=== PATIENT | female | born 1985 | race Caucasian/White ===

== ENCOUNTER → 2018-03-23 | Day surgery (SDC) | payer OTHER ==
[2018-03-06 12:01] VITALS: Ht 170.2 cm; Wt 59.1 kg
[~2018-03-23] VITALS: Ht 170.2 cm; Wt 59.1 kg
[~2018-03-23] MED LIST: AMPH25CA PO; ATEN-173 PO; ATROPINE SULFATE 0.1 MG/ML 5ML SYR IV PRN; BUPIVACAINE 0.25% 30 ML VIAL ONE; BUSP5TAB59 PO; CEFAZOLIN 2000MG IV PUSH 15 ML IV SCH; DEXAMETHASONE SOD INJ 4 MG/ML VIAL ONE; EpHEDrine SULFATE INJ 50 MG/ML AMP IV PRN; EpINEphrine HCL INJ 1 MG/ML 1ML SYRINGE ONE; FENTANYL CITRATE INJ 50 MCG/1 ML 2 ML VIAL IV PRN; FENTANYL CITRATE INJ 50 MCG/1 ML 2 ML VIAL ONE; KETO10TA PO; KETOROLAC TROMETHAMINE 30 MG/ML VIAL IV. PRN; LACTATED RINGER'S 1000ML 1,000 ML IV SCH; LIDOCAINE HCL 2% 2 ML VIAL (20MG/ML) ONE; MIDAZOLAM HCL 1 MG/ML 2ML VIAL ONE; NAPR-1169 PO; ONDANSETRON INJ 2 MG/ML 2 ML VIAL IV PRN; ONDANSETRON INJ 2 MG/ML 2 ML VIAL ONE; OXYC-57 PO; OXYCODONE/ACETAMINOPHEN 5-325 TAB PO PRN; PRAZ2CAP3 PO; PROPOFOL IV EMULSION 10 MG/ML 20 ML VIAL IV ONE; RANI150T85 PO; ROPIVACAINE 0.5% 5 MG/ML 30 ML VIAL ONE; SCOPOLAMINE 1.5 MG TDSY TD ONE; SERT-234 PO; SODIUM CHLORIDE 0.9% 1000ML 1,000 ML IV SCH
--- NOTE | 2018-03-23 09:02 | History & Physical Bridge - [place] ---
H&P Re-Evaluation Bridge Note: I have examined the patient, reviewed the History & Physical and in the interval since the performance of the History & Physical I have noted the following changes of clinical significance: No changes noted
--- NOTE | 2018-03-23 10:34 | [facility] Post Operative Brief Note ---
Immediate Operative Summary Operative Date Mar 23, 2018. Pre-Operative Diagnosis Right Tendinitis of Rotator Cuff, Disorder of Acromioclavicular Joint Post-Operative Diagnosis Same Procedure(s) Performed Right Shoulder Arthroscopy With Extensive Debridement, Acromioplasty, And Distal Clavicle Resection Surgeon Dr. Solorzano Master Control Operator Surgeon(s) Willy Trejo PA-C Estimated Blood Loss 5ml Findings Consistent with Post-Op Diagnosis Specimens None Drains None Anesthesia Type General Regional Complication(s) none Disposition Disposition: Recovery Room / PACU
--- NOTE | 2018-03-23 10:38 | Discharge Instructions-SurgCtr ---
Discharge Instructions Date of Service Mar 23, 2018. Visit Reason for Visit: Right Shoulder Rotator Cuff Tendinitis, Ac Joint D Discharge Discharge Diagnosis / Problem: SAME ABOVE Discharge Goals Goal(s): Decrease discomfort, Improve function Medications Stopped Medications Name(s): All meds stopped x 2 weeks Restart Stopped Medication(s): MAY RESTART 03/23/2018 Activity Recommendations Activity Limitations: as noted below Lifting Limitations: gradually increase as tolerated Exercise/Sports Limitations: gradually increase as tolerated Shower/Bathe: tomorrow Anesthesia . Post Anesthesia Instructions: If you have had General Anesthesia or IV Sedation: * Do not drive today. * Resume driving when surgeon permits. * Do not make important decisions or sign legal documents today. * Call surgeon for: 1. Temperature elevations greater than 101 degrees F. 2. Uncontrollable pain. 3. Excessive bleeding. 4. Persistent nausea and vomiting. 5. Medication intolerance (nausea, vomiting or rash). * For nausea and vomiting use only clear liquids such as: tea, soda, bouillon until nausea subsides, then gradually increase diet as tolerated. * If you have any concerns or questions, call your surgeon's office. If physician is unavailable and it is an emergency, call 911 or go to the nearest emergency room. . Instructions / Follow-Up Instructions / Follow-Up MEDICATIONS: * Resume previous medications unless instructed otherwise by your surgeon. * Always take pain medication on a full stomach or with food to avoid upset stomach. * Do not drink alcohol or drive while taking narcotics. * Ibuprofen or Tylenol may be taken if narcotic not needed. SPECIAL CARE INSTRUCTIONS: __ None _X_ Keep extremity elevated and iced x 48 hours; apply ice 20-30 minutes 8-10 times/day. May remove at night. _X_ Sling (WEAR FOR COMFORT ONLY) __24 hrs/day __ Remove at night __ Shoulder Immobilizer __ 24 hrs/day __ Remove at night _X_ Dressing __ Maintain until seen in office, may shower with plastic over site _X_ Remove dressings in 24-48 hours and then may shower _X_ Cover incisions with band-aids after showering __ Do not remove steri-strips Call physician if chills or temperature rises above 102 degrees or pain unrelieved by prescribed pain medications at . . Diet Recommendations Home Diet: no limitations Fluid Restriction: None Procedures Procedures Performed: Right Shoulder Arthroscopy With Extensive Debridement, Acromioplasty, And Distal Clavicle Resection Pending Studies Studies pending at discharge: no Work Instructions Return To Work: after follow-up Medical Emergencies . Who to Call and When: Medical Emergencies: If at any time you feel your situation is an emergency, please call 911 immediately. . Non-Emergent Contact Non-Emergency issues call your: Primary Care Provider Call Non-Emergent contact if: you have a fever, temperature is above 101.5 . . "Provider Documentation" section prepared by Cody Trejo. .
[2018-03-23 11:46] VITALS: BP 96/59; PULSE 67; TEMP 36.8; O2SAT 97
--- NOTE | 2018-03-23 11:52 | Anesthesia Progress Nt - [facility] ---
Anesthesia Post Op Note Date & Time Mar 23, 2018 at 11:51 Vital Signs Pain Intensity: 0 Vital Signs Past 12 Hours Date Time Temp Pulse Resp B/P (MAP) Pulse Ox O2 Delivery O2 Flow Rate FiO2 03/23/18 11:46 36.8 67 96/59 (71) 97 Room Air 03/23/18 11:24 36.2 54 16 108/71 99 Room Air 03/23/18 11:22 71 21 92 03/23/18 11:22 73 21 03/23/18 11:21 108/71 03/23/18 11:18 51 16 03/23/18 11:18 50 16 99 03/23/18 11:16 105/72 03/23/18 11:13 54 17 03/23/18 11:13 57 17 99 03/23/18 11:12 58 20 100 03/23/18 11:12 59 20 03/23/18 11:11 108/71 03/23/18 11:07 58 19 03/23/18 11:07 59 19 99 03/23/18 11:06 107/74 03/23/18 11:02 61 16 98 03/23/18 11:02 61 16 03/23/18 11:01 114/67 03/23/18 10:57 54 18 03/23/18 10:57 53 18 100 03/23/18 10:56 111/69 03/23/18 10:52 74 18 100 03/23/18 10:52 71 18 03/23/18 10:51 104/72 03/23/18 10:47 53 14 100 03/23/18 10:47 53 14 03/23/18 10:46 114/70 03/23/18 10:42 59 17 03/23/18 10:42 59 17 100 03/23/18 10:41 110/64 03/23/18 10:40 107/57 03/23/18 10:38 36.3 84 16 107/57 99 Mask 6 03/23/18 10:37 17 03/23/18 10:37 73 17 03/23/18 09:36 98/60 03/23/18 09:34 64 28 100 03/23/18 09:34 63 03/23/18 09:31 107/64 03/23/18 09:29 60 13 99 03/23/18 09:29 62 03/23/18 09:26 97/64 03/23/18 09:24 55 03/23/18 09:24 56 13 100 03/23/18 09:21 116/78 03/23/18 09:19 53 21 100 03/23/18 09:19 55 03/23/18 09:16 107/73 03/23/18 09:14 57 03/23/18 09:14 56 14 100 03/23/18 09:11 121/76 03/23/18 07:27 36.5 63 18 120/80 (93) 100 Room Air Notes Mental Status: alert / awake / arousable, participated in evaluation Pt Amnestic to Procedure: Yes Nausea / Vomiting: adequately controlled Pain: adequately controlled Airway Patency, RR, SpO2: stable & adequate BP & HR: stable & adequate Hydration State: stable & adequate Anesthetic Complications: no major complications apparent
--- NOTE | 2018-03-23 16:27 | OPERATIVE REPORT ---
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 POSTOPERATIVE DIAGNOSIS: Same. PROCEDURE: Right shoulder diagnostic arthroscopy with extensive debridement, distal clavicle resection, and acromioplasty. SURGEON: Dr. Ishmael Solorzano. PHONE MANAGER: Julio Trejo PA-C, whose assistance was necessary for positioning the arm and helping with instrumentation. ANESTHESIA: General with a right interscalene nerve block. COMPLICATIONS: None. CONDITION: Stable to PACU. INDICATIONS: Eli is a pleasant 33-year-old female who has been dealing with a 5-year history of right shoulder pain. She does not recall any traumatic event. She has had extensive workup with her shoulder. Most of her pain seems to be coming from around the AC joint. After failing conservative treatment, she elected to undergo arthroscopy. DESCRIPTION OF PROCEDURE: On 03/23/2018, she arrived at [facility] for the above procedure. She was seen in the preoperative holding area and the operative extremity was identified and signed. She was given a preoperative antibiotic and a right interscalene nerve block. She was taken back to the operating room, laid on the table in supine position and put under general anesthesia. She was then put into the beach chair position. Right shoulder was prepped and draped in sterile fashion. Time-out was done and the patient and operative extremity were properly identified. A scope was placed in the posterior portal. Diagnostic arthroscopy showed no cartilage damage to the humeral head or the glenoid. There was a little fraying of the anterior labrum. The biceps tendon was intact with a normal size biceps rios mechanism. The supraspinatus and infraspinatus teres minor and subscapularis were all checked and intact. An anterior portal was made. A shaver was used to do a debridement of the intraarticular structures. The biceps tendon was pulled into the joint and no pathology was identified. The scope was then put into the subacromial space. A lateral portal was made. A shaver was used to do a complete subacromial and subdeltoid bursectomy and a blader was used to tease the coracoacromial ligament off the undersurface of the acromion. A 5-0 santi was used to complete an acromioplasty of a Bigliani type 2 acromion. A shaver was used to remove any excess debris and the bursal side of the rotator cuff was examined extensively without evidence of tear. Attention was then turned to the distal clavicle. Through an anterior portal, a shaver and ablator were used to skeletonize the distal clavicle. A 5-0 santi was then used to resect the distal 5 mm of the clavicle. Complete resection was checked under direct visualization. A shaver was used to remove any excess debris. The bursal side of the rotator cuff was once again examined without evidence of tear. The arthroscopic instruments were removed from the shoulder. Portal sites were closed with 3-0 nylon. She was then placed in a soft dressing and regular arm sling. She was then extubated, transferred to a litter and taken to the post-anesthesia care unit in stable condition. She tolerated the procedure well. I attest to the content of the Intraoperative Record and any orders documented therein. Any exception s are noted below.
== END | disposition home or self-care (01) ==
LOC: X.SURG 07:08
PROVIDERS: ATTEND Orthopaedic Surgery
DX: M19.011 Primary osteoarthritis, right shoulder (principal); M75.41 Impingement syndrome of right shoulder; F32.9 Major depressive disorder, single episode, unspecified; F41.9 Anxiety disorder, unspecified; Z98.51 Tubal ligation status; Z79.899 Other long term (current) drug therapy